=== PATIENT | female | born 1955 | race Caucasian/White ===

== ENCOUNTER 2017-06-03 20:49 | Inpatient (IN) | payer OTHER ==
[2017-06-03] MEDS: ALBUTEROL/IPRATROPIUM (NEB) 3 ML AMP HHN (22:30)
[2017-06-03] MEDS: SOD CHLORIDE 0.9% 1,000 ML IV (22:30)
[2017-06-03] MEDS: POTASSIUM BICARBONATE 25 MEQ TAB PO (22:30)
[2017-06-03] MEDS ORDERED: ACETAMINOPHEN 325 MG TAB PO ×2 (22:30→23:30)
[2017-06-03] MEDS ORDERED: DOCUSATE SODIUM 100 MG CAP PO (23:30)
[2017-06-03] MEDS ORDERED: BISACODYL (EC) 5 MG TAB PO (23:30)
[2017-06-03] MEDS ORDERED: NACL 0.9% 3 ML SYG IV (23:30)
[2017-06-03] MEDS ORDERED: MAGNESIUM HYDROXIDE 30ML CUP PO (23:30)
[2017-06-03] MEDS ORDERED: ONDANSETRON 4 MG INJ IV (23:30)
[2017-06-03] MEDS ORDERED: ZOLPIDEM 5 MG TAB PO (23:30)
[2017-06-04] MEDS: ALBUTEROL/IPRATROPIUM (NEB) 3 ML AMP HHN ×4 (01:11→19:30)
[2017-06-04] MEDS: AZITHROMYCIN 250 MG in SOD CHLORIDE 0.9% 250 ML IVPB (02:30)
[2017-06-04] MEDS: POTASSIUM CHLORIDE (SR) 10 MEQ TAB PO (04:08)
[2017-06-04 05:12] LABS: HEMOGLOBIN 13.1 g/dl (12.0-16.0)
[2017-06-04 05:25] LABS: MEAN CORPUSCULAR HGB CONC 35.4 g/dl (32.0-37.0); MEAN CORPUSCULAR VOLUME 90.5 fl (82.0-101.0); MEAN PLATELET VOLUME 10.3 fl (7.4-10.4); PLATELET COUNT 160 10^3/UL (140-415); RED BLOOD COUNT 4.09 10^6/ul (4.20-5.40); RED CELL DISTRIBUTION WIDTH 11.5 % (11.5-14.5)
[2017-06-04 05:25] LABS: WHITE BLOOD COUNT 14.6 10^3/ul (4.8-10.8)
[2017-06-04] MEDS: PANTOPRAZOLE (EC) 40 MG TAB PO (05:34)
[2017-06-04] MEDS: CEFTRIAXONE 1 GM/NS 50 ML IVPB (05:34)
[2017-06-04 05:43] LABS: ADD MAN DIFF? YES; POSITIVE DIFF @See below
[2017-06-04 05:50] LABS: ALANINE AMINOTRANSFERASE 36 IU/L (13-69); ALBUMIN 3.4 g/dl (3.3-4.9); ALBUMIN/GLOBULIN RATIO 0.94; ALKALINE PHOSPHATASE 121 IU/L (42-121); ANION GAP 18 (8-16); ASPARTATE AMINO TRANSFERASE 17 IU/L (15-46); BILIRUBIN,INDIRECT 0.3 mg/dl (0-1.1); BILIRUBIN,TOTAL 0.3 mg/dl (0.2-1.3); BLOOD UREA NITROGEN 20 mg/dl (7-20); CALCIUM 9.6 mg/dl (8.4-10.2); CARBON DIOXIDE 23 mmol/L (21-31); CHLORIDE 106 mmol/L (97-110); GLUCOSE 379 mg/dl (70-220); POTASSIUM 3.5 mmol/L (3.5-5.1); SODIUM 143 mmol/L (135-144)
[2017-06-04] MEDS ORDERED: GLUCOSE GEL 15 GRAM TUBE BUCCAL (07:00)
[2017-06-04] MEDS ORDERED: GLUCAGON 1 MG INJ IM (07:00)
[2017-06-04] MEDS ORDERED: DEXTROSE 50% 50 ML SYRINGE IV ×2 (07:00)
[2017-06-04] MEDS ORDERED: GLUCOSE GEL 15 GRAM TUBE PO ×2 (07:00)
[2017-06-04] MEDS: ACCU-CHEK XX ×4 (07:05→21:00)
[2017-06-04] MEDS ORDERED: INSULIN ASPART [NOVOLOG] 3 ML PEN SC (07:35)
[2017-06-04] MEDS ORDERED: CEFTRIAXONE 1 GM INJ IM (09:00)
[2017-06-04] MEDS: metFORMIN 500 MG TAB GTB (09:31)
[2017-06-04] MEDS: ATORVASTATIN 20 MG TAB PO (09:31)
[2017-06-04] MEDS: INSULIN ASPART [NOVOLOG] 3 ML PEN SC ×5 (09:36→22:01)
[2017-06-04] MEDS: ENOXAPARIN 40 MG/0.4 ML SYG SC (09:36)
[2017-06-04] MEDS: INSULIN GLARGINE [LANtus] 3 ML PEN SC (20:50)
[2017-06-05] MEDS: AZITHROMYCIN 250 MG in SOD CHLORIDE 0.9% 250 ML IVPB (01:41)
[2017-06-05] MEDS: ACCU-CHEK XX ×5 (02:41→21:00)
[2017-06-05] MEDS: ALBUTEROL/IPRATROPIUM (NEB) 3 ML AMP HHN ×4 (02:59→19:51)
[2017-06-05] MEDS: CEFTRIAXONE 1 GM/NS 50 ML IVPB (05:14)
[2017-06-05] MEDS: PANTOPRAZOLE (EC) 40 MG TAB PO (05:15)
[2017-06-05] MEDS: ATORVASTATIN 20 MG TAB PO (08:33)
[2017-06-05 08:51] LABS: ADD MAN DIFF? NO
[2017-06-05] MEDS: INSULIN ASPART [NOVOLOG] 3 ML PEN SC ×7 (08:53→21:00)
[2017-06-05] MEDS: ENOXAPARIN 40 MG/0.4 ML SYG SC (08:54)
[2017-06-05 09:17] LABS: MAGNESIUM 1.9 mg/dl (1.7-2.5)
[2017-06-05 09:17] LABS: PHOSPHORUS 3.3 mg/dl (2.5-4.9)
[2017-06-05 09:22] LABS: ANION GAP 16 (8-16); BLOOD UREA NITROGEN 22 mg/dl (7-20); CALCIUM 8.9 mg/dl (8.4-10.2); CARBON DIOXIDE 25 mmol/L (21-31); CHLORIDE 107 mmol/L (97-110); CREATININE 0.67 mg/dl (0.44-1.00); GLUCOSE 249 mg/dl (70-220); POTASSIUM 3.3 mmol/L (3.5-5.1); SODIUM 145 mmol/L (135-144)
[2017-06-05 09:48] LABS: BASOPHILS % 0.2 % (0.0-2.0); EOSINOPHILS % 0.3 % (0.0-7.0); HEMATOCRIT 36.2 % (37.0-47.0); HEMOGLOBIN 12.4 g/dl (12.0-16.0); LYMPHOCYTES # 2.4 10^3/ul (0.8-2.9); LYMPHOCYTES % 18.7 % (15.0-51.0); MEAN CORPUSCULAR HEMOGLOBIN 31.7 pg (29.0-33.0); MEAN CORPUSCULAR HGB CONC 34.3 g/dl (32.0-37.0); MEAN CORPUSCULAR VOLUME 92.6 fl (82.0-101.0); MEAN PLATELET VOLUME 10.7 fl (7.4-10.4); MONOCYTE # 0.5 10^3/ul (0.3-0.9); MONOCYTES % 3.9 % (0.0-11.0); NEUTROPHIL # 9.7 10^3/ul (1.6-7.5); PLATELET COUNT 189 10^3/UL (140-415); RED BLOOD COUNT 3.91 10^6/ul (4.20-5.40); RED CELL DISTRIBUTION WIDTH 11.7 % (11.5-14.5)
[2017-06-05 09:48] LABS: WHITE BLOOD COUNT 12.7 10^3/ul (4.8-10.8)
[2017-06-05] MEDS: POTASSIUM CHLORIDE (SR) 20 MEQ TAB PO (13:23)
[2017-06-05] MEDS: INSULIN GLARGINE [LANtus] 3 ML PEN SC (21:58)
[2017-06-06] MEDS: ALBUTEROL/IPRATROPIUM (NEB) 3 ML AMP HHN ×4 (00:47→19:39)
[2017-06-06] MEDS: AZITHROMYCIN 250 MG in SOD CHLORIDE 0.9% 250 ML IVPB ×2 (01:00→02:11)
[2017-06-06] MEDS: ACCU-CHEK XX ×5 (02:00→21:51)
[2017-06-06 05:16] LABS: ADD MAN DIFF? NO
[2017-06-06 05:26] LABS: WHITE BLOOD COUNT 8.5 10^3/ul (4.8-10.8)
[2017-06-06 05:26] LABS: BASOPHILS % 0.4 % (0.0-2.0); EOSINOPHILS # 0.1 10^3/ul (0.0-0.5); EOSINOPHILS % 1.2 % (0.0-7.0); HEMATOCRIT 36.1 % (37.0-47.0); HEMOGLOBIN 12.7 g/dl (12.0-16.0); LYMPHOCYTES # 2.1 10^3/ul (0.8-2.9); LYMPHOCYTES % 24.9 % (15.0-51.0); MEAN CORPUSCULAR HEMOGLOBIN 31.8 pg (29.0-33.0); MEAN CORPUSCULAR HGB CONC 35.2 g/dl (32.0-37.0); MEAN CORPUSCULAR VOLUME 90.5 fl (82.0-101.0); MEAN PLATELET VOLUME 10.1 fl (7.4-10.4); MONOCYTE # 0.5 10^3/ul (0.3-0.9); NEUTROPHIL # 5.7 10^3/ul (1.6-7.5); NEUTROPHILS % 66.3 % (39.0-77.0); PLATELET COUNT 206 10^3/UL (140-415); RED BLOOD COUNT 3.99 10^6/ul (4.20-5.40); RED CELL DISTRIBUTION WIDTH 11.6 % (11.5-14.5)
[2017-06-06] MEDS: PANTOPRAZOLE (EC) 40 MG TAB PO (05:36)
[2017-06-06] MEDS: CEFTRIAXONE 1 GM/NS 50 ML IVPB (05:36)
[2017-06-06] MEDS: ATORVASTATIN 20 MG TAB PO (09:09)
[2017-06-06] MEDS: INSULIN ASPART [NOVOLOG] 3 ML PEN SC ×7 (09:12→21:00)
[2017-06-06] MEDS: ENOXAPARIN 40 MG/0.4 ML SYG SC (09:14)
[2017-06-06] MEDS: AMLODIPINE 10 MG TAB PO (13:05)
[2017-06-06] MEDS ORDERED: GUAIFENESIN/DM 5ML CUP PO (15:00)
[2017-06-06] MEDS: GUAIFENESIN/DM 5ML CUP PO (16:42)
[2017-06-06] MEDS: INSULIN GLARGINE [LANtus] 3 ML PEN SC ×2 (20:00→21:51)
[2017-06-07] MEDS: AZITHROMYCIN 250 MG in SOD CHLORIDE 0.9% 250 ML IVPB (00:03)
[2017-06-07] MEDS: ACCU-CHEK XX ×5 (02:00→21:32)
[2017-06-07] MEDS: ALBUTEROL/IPRATROPIUM (NEB) 3 ML AMP HHN ×4 (02:00→20:00)
[2017-06-07] MEDS: CEFTRIAXONE 1 GM/NS 50 ML IVPB (06:12)
[2017-06-07] MEDS: PANTOPRAZOLE (EC) 40 MG TAB PO (06:12)
[2017-06-07] MEDS: AMLODIPINE 10 MG TAB PO (08:45)
[2017-06-07] MEDS: ATORVASTATIN 20 MG TAB PO (08:45)
[2017-06-07] MEDS: INSULIN ASPART [NOVOLOG] 3 ML PEN SC ×7 (08:48→21:23)
[2017-06-07] MEDS: ENOXAPARIN 40 MG/0.4 ML SYG SC (09:00)
[2017-06-07] MEDS: INSULIN GLARGINE [LANtus] 3 ML PEN SC (21:23)
[2017-06-08] MEDS: AZITHROMYCIN 250 MG in SOD CHLORIDE 0.9% 250 ML IVPB (00:30)
[2017-06-08] MEDS: ALBUTEROL/IPRATROPIUM (NEB) 3 ML AMP HHN ×3 (01:16→14:00)
[2017-06-08] MEDS: ACCU-CHEK XX ×4 (02:38→17:25)
[2017-06-08] MEDS: CEFTRIAXONE 1 GM/NS 50 ML IVPB (06:08)
[2017-06-08] MEDS: PANTOPRAZOLE (EC) 40 MG TAB PO (06:08)
[2017-06-08] MEDS: INSULIN ASPART [NOVOLOG] 3 ML PEN SC ×6 (07:50→17:44)
[2017-06-08] MEDS: AMLODIPINE 10 MG TAB PO (09:15)
[2017-06-08] MEDS: ATORVASTATIN 20 MG TAB PO (09:15)
== END 2017-06-08 17:43 | disposition home health service (06) | DRG 195 ==
LOC: TEL 06-05 02:15 → MS3 20:49 → MS1 06-05 23:02
PROVIDERS: Internal Medicine Nephrology
DX: J18.9 Pneumonia, unspecified organism (principal); Y95 Nosocomial condition; E11.65 Type 2 diabetes mellitus with hyperglycemia; E87.5 Hyperkalemia; E78.5 Hyperlipidemia, unspecified; E66.9 Obesity, unspecified; Z68.29 Body mass index [BMI] 29.0-29.9, adult; Z79.4 Long term (current) use of insulin
CPT/HCPCS: 71045; 80048; 80053; 82962; 83036; 83735; 84100; 85025; 94640; 94664